=== PATIENT | male | born 1965 | race African-American/Black ===

== ENCOUNTER → 2022-05-03 | Outpatient (CLI) | payer OTHER ==
--- NOTE | 2022-05-03 16:56 | XR ---
EXAMINATION TYPE: XR shoulder complete LT DATE OF EXAM: 05/03/2022 4:47 PM INDICATION: Patient age:Male; 56 years old; Reason for study: M25.512 left shoulder pain; COMPARISON: None TECHNIQUE: The left shoulder was examined in AP, internally rotated and scapular Y projections. . FINDINGS: No evidence of acute osseous pathology, joint dislocation, or soft tissue swelling. The remaining por tions of the visualized chest are unremarkable. Mild degeneration changes of the acromioclavicular joint with bulging of the acromion which may be im pinging upon the superior rotator cuff. IMPRESSION: 1. No acute osseous pathology. 2. Degeneration changes of the left shoulder with a locking of the acromion which could be impacting upon the superior rotator cuff.
== END | disposition home or self-care (01) ==
LOC: RADXRMAIN 15:49
PROVIDERS: ATTEND Emergency Medicine
DX: M19.012 Primary osteoarthritis, left shoulder (principal)

== ENCOUNTER → 2022-06-08 | Outpatient (CLI) | payer OTHER ==
--- NOTE | 2022-06-08 17:13 | MR ---
EXAMINATION TYPE: MR shoulder LT wo con DATE OF EXAM: 06/08/2022 COMPARISON: Left shoulder x-ray May 03, 2022 HISTORY: Lt shoulder pain for 2 months after injury TECHNIQUE: Multiplanar, multisequence imaging of the left shoulder is performed without contrast. FINDINGS: Rotator Cuff: Full-thickness retracted tear of the supraspinatus tendon with large cleft measuring 9 mm transversely coronal image 11 x 11 mm AP diameter sagittal image 8. Infraspinatus tendon grossly i ntact. Subscapularis tendon intact surrounding fluid. Rotator cuff muscle bulk preserved. Acromioclavicular Joint: Moderate to severe narrowing with moderate capsular hypertrophy. Underlying fat plane is maintained. Glenohumeral Joint: Moderate narrowing without significant spurring. Small to moderate size joint eff usion Labrum: The labrum appears grossly intact given limitation of non-arthrogram study. Biceps Tendon: The long head of biceps is in normal location within bicipital groove. Bone marrow signal: No focal abnormal marrow signal is appreciated. Other: No additional significant abnormality is appreciated. IMPRESSION: Significant focal retracted tear of the supraspinatus tendon as detailed above.
== END | disposition home or self-care (01) ==
LOC: RADMRIMAIN 13:15
PROVIDERS: ATTEND Emergency Medicine
DX: M75.112 Incomplete rotator cuff tear or rupture of left shoulder, not specified as traumatic (principal)

== ENCOUNTER → 2022-08-22 | Outpatient (CLI) | payer BC, OTHER ==
[2022-08-22 23:50] LABS: Basophils # (A) 0.05 X 10*3/uL (0.00-0.10); Basophils % (A) 0.8 %; Eosinophils % (A) 3.2 %; HCT 41.3 % (39.6-50.0); HGB 13.7 g/dL (13.0-17.0); Immature Grans, Automated 0.5 %; Lymphocytes # (A) 2.59 X 10*3/uL (0.90-5.00); Lymphocytes % (A) 41.9 %; MCH 31.7 pg (27.0-32.0); MCHC 33.2 g/dL (32.0-37.0); MCV 95.6 fL (80.0-97.0); Mean Platelet Volume 11.1 fL (9.5-12.2); Monocytes # (A) 0.53 X 10*3/uL (0.20-1.00); Monocytes % (A) 8.6 %; NRBC Per 100 WBC 0 /100 WBCS (0.0-0.0); Neutrophils # (A) 2.78 X 10*3/uL (1.80-7.70); Platelet Count 179 X 10*3/uL (140-440); RBC 4.32 X 10*6/uL (4.40-5.60); RDW 13.3 % (11.5-14.5); WBC 6.18 X 10*3/uL (4.50-10.00)
[2022-08-23 00:31] LABS: African American GFR (CKD) 95.1 (60.0-200.0); Anion Gap 10.2 mmol/L (10.00-18.00); BUN/Creat Ratio 9.3 Ratio (12.00-20.00); Blood Urea Nitrogen 9.3 mg/dL (9.0-27.0); Calcium 9.1 mg/dL (8.7-10.3); Carbon Dioxide 28.8 mmol/L (20.0-27.5); Potassium 4.4 mmol/L (3.5-5.5)
== END | disposition home or self-care (01) ==
LOC: LABWHC1 15:45
PROVIDERS: ATTEND Orthopaedic Surgery
DX: Z01.812 Encounter for preprocedural laboratory examination (principal); M75.42 Impingement syndrome of left shoulder
CPT/HCPCS: 36415; 80048; 85025; 93005

== ENCOUNTER → 2022-09-08 | Outpatient (CLI) | payer OTHER ==
--- NOTE | 2022-09-08 13:56 | XR ---
EXAMINATION TYPE: XR wrist complete RT DATE OF EXAM: 09/08/2022 COMPARISON: None HISTORY: Wrist pain radial head ganglion cyst TECHNIQUE: 4 view right wrist FINDINGS: There is prominent soft tissue over the carpal region of the dorsal wrist. There is mild prominence of the scapholunate space of 0.3 cm. There is clinical concern for scapholun ate disassociation, MRI could be performed. MRI would be able to further evaluate the suspected dorsa l ganglion cyst. No acute fractures are evident. Follow up exams can be performed 7-10 days from acute trauma for cont inued. If there is pain at the anatomic snuffbox, nuclear medicine bone scan could be performed for a dditional evaluation. IMPRESSION: 1. Soft tissue swelling dorsal carpal region. MRI could further evaluate these suspected ganglion cy st. 2. There may be some mild prominence of the scapholunate space. MRI could further evaluate for disass ociation.
== END | disposition home or self-care (01) ==
LOC: RADXRMAIN 13:22
PROVIDERS: ATTEND Emergency Medicine
DX: M79.89 Other specified soft tissue disorders (principal)

== ENCOUNTER → 2022-09-23 | Outpatient (CLI) | payer BC ==
[2022-09-23 19:14] LABS: Basophils # (A) 0.04 X 10*3/uL (0.00-0.10); Basophils % (A) 0.5 %; Eosinophils # (A) 0.18 X 10*3/uL (0.04-0.35); Eosinophils % (A) 2.4 %; HCT 39.4 % (39.6-50.0); HGB 13.3 g/dL (13.0-17.0); Immature Grans, Automated 0.4 %; Lymphocytes # (A) 2.24 X 10*3/uL (0.90-5.00); Lymphocytes % (A) 30.2 %; MCH 31.1 pg (27.0-32.0); MCHC 33.8 g/dL (32.0-37.0); MCV 92.3 fL (80.0-97.0); Mean Platelet Volume 10.4 fL (9.5-12.2); Monocytes # (A) 0.69 X 10*3/uL (0.20-1.00); Monocytes % (A) 9.3 %; NRBC Per 100 WBC 0 /100 WBCS (0.0-0.0); Neutrophils # (A) 4.24 X 10*3/uL (1.80-7.70); Neutrophils % (A) 57.2 %; Platelet Count 170 X 10*3/uL (140-440); RBC 4.27 X 10*6/uL (4.40-5.60); RDW 12.9 % (11.5-14.5); WBC 7.42 X 10*3/uL (4.50-10.00)
[2022-09-23 19:45] LABS: African American GFR (CKD) 95.1 (60.0-200.0); Anion Gap 10.9 mmol/L (10.00-18.00); BUN/Creat Ratio 8.3 Ratio (12.00-20.00); Blood Urea Nitrogen 8.3 mg/dL (9.0-27.0); Calcium 9.3 mg/dL (8.7-10.3); Carbon Dioxide 28.1 mmol/L (20.0-27.5); Potassium 4.3 mmol/L (3.5-5.5)
== END | disposition home or self-care (01) ==
LOC: LABPAT 11:21
PROVIDERS: ATTEND Orthopaedic Surgery
DX: Z01.812 Encounter for preprocedural laboratory examination (principal); M75.42 Impingement syndrome of left shoulder
CPT/HCPCS: 80048; 85025

== ENCOUNTER 2022-09-30 05:34 | Day surgery (SDC) | payer BC, OTHER ==
[2022-09-27 13:03] VITALS: BMI 31.7
--- NOTE | 2022-09-29 11:58 | P.HPOR ---
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 He was lifting a heavy trash can and felt a pop in his left shoulder. He has pain and weakness ever since. He notes difficulty with overhead activity and in addition to significant night symptoms. He's been on work restrictions since his injury. He denies previous problems with the left shoulder. Review of Systems As per HPI Past Medical History Past Medical History: Hypertension History of Any Multi-Drug Resistant Organisms: None Reported Past Surgical History: Orthopedic Surgery Additional Past Surgical History / Comment(s): Left wrist surgery. Past Anesthesia/Blood Transfusion Reactions: No Reported Reaction Past Psychological History: No Psychological Hx Reported Smoking Status: Former smoker Past Alcohol Use History: Occasional Additional Past Alcohol Use History / Comment(s): Quit smoking 2 1/2 yrs ago. Past Drug Use History: None Reported - Past Family History Brother(s) Family Medical History: Cancer Medications and Allergies Home Medications Medication Instructions Recorded Confirmed Type Ibuprofen 600 mg PO TID 09/27/22 09/27/22 History Naproxen [Naprosyn] 500 mg PO BID PRN 09/27/22 09/27/22 History lisinopriL [Zestril] 10 mg PO QAM 09/27/22 09/27/22 History Allergies Allergy/AdvReac Type Severity Reaction Status Date / Time No Known Allergies Allergy Verified 09/27/22 12:50 Physical Examination - Shoulder left Appearance: effusion Effusion grade: trace Tenderness with palpation: anterior Pain: with forward flexion ROM: forward flexion: 100 degrees (100 actively, 150 passively) ROM: external rotation: 40 degrees Strength: abduction: 4/5 Strength: forward flexion: 4/5 Tests: internal impingement tests: positive Results The patient is a well-developed well-nourished male approximately 6 foot tall, 236 pounds of endomorphic habitus. HEENT exam is nonfocal, neck is supple. He's tender about the left shoulder anterior subacromial space. He has moderate subacromial crepitus. Impingement test, and NEER test are positive. His distal neurovascular exam appears intact in the left upper extremity. - Diagnostic results Shoulder MRI: image reviewed (Left shoulder MRI is reviewed and shows a retracted full thickness supraspinatus tear) Assessment and Plan Assessment: Left acute rotator cuff tear Plan: I talked to the patient regarding his condition along with treatment options. At this point he is significantly symptomatic after this acute injury. After a thorough discussion he opted to proceed with surgery. We'll plan to proceed with arthroscopic evaluation with probable left shoulder subacromial decompression, and rotator cuff repair. We will likely perform that as an outpatient procedure. Risks and benefits were discussed at length in layman's terms.
[2022-09-30] MEDS ORDERED: HYDROmorphone 0.5 MG/0.5 ML SYRINGE IVP PRN (05:45)
[2022-09-30] MEDS ORDERED: DEXAMETHASONE SOD PHOSPHATE 4 MG/ML 1 ML VIAL IV ONE (05:45)
[2022-09-30] MEDS ORDERED: LIDOCAINE 1% (10MG/ML) FOR IV START INTRADERMA PRN (05:45)
[2022-09-30] MEDS ORDERED: LACTATED RINGERS 1,000 ML IV SCH (05:45)
[2022-09-30] MEDS ORDERED: ONDANSETRON 4 MG/2 ML VIAL IVP ONE (05:45)
[2022-09-30] MEDS ORDERED: MIDAZOLAM 2 MG/2 ML VIAL IV PRN (05:45)
[2022-09-30 06:10] VITALS: RESP 16
[2022-09-30] MEDS ORDERED: DEXAMETHASONE SOD PHOSPHATE 4 MG/ML 1 ML VIAL ONE (07:10)
[2022-09-30] MEDS ORDERED: NEOSTIGMINE 1 MG/ML 10 ML VIAL ONE (07:10)
[2022-09-30] MEDS ORDERED: hydrALAZINE HCL 20 MG/ML 1 ML VIAL ONE (07:10)
[2022-09-30] MEDS ORDERED: SUCCINYLCHOLINE CHLORIDE 200 MG/10 ML VIAL IV ONE (07:10)
[2022-09-30] MEDS ORDERED: fentaNYL (PF) 50 MCG/ML 2 ML AMP ONE (07:10)
[2022-09-30] MEDS ORDERED: ROPIVACAINE 5 MG/ML 30 ML VIAL ONE (07:10)
[2022-09-30] MEDS ORDERED: PROPOFOL 10 MG/ML 20 ML VIAL IV ONE (07:10)
[2022-09-30] MEDS ORDERED: HYDROmorphone (PF) 1 MG/ML ONE (07:10)
[2022-09-30] MEDS ORDERED: GLYCOPYRROLATE 0.2 MG/ML 2 ML VIAL ONE (07:10)
[2022-09-30] MEDS ORDERED: LIDOCAINE 2% INJ 20 MG/ML (2 ML VIAL) ONE (07:10)
[2022-09-30] MEDS ORDERED: ROCURONIUM 10 MG/ML (5 ML VIAL) IV ONE (07:10)
[2022-09-30] MEDS ORDERED: EPINEPHrine (PF) 1 ML in SODIUM CHLORIDE 0.9% IRRIGATIO 3,000 ML IRRIGATION ONE ×8 (07:18)
--- NOTE | 2022-09-30 09:08 | P.OP ---
Date of Procedure: 09/30/22 Preoperative Diagnosis: Left rotator cuff tear Postoperative Diagnosis: 4 cm left rotator cuff tear, type I superior labral tear Procedure(s) Performed: Left shoulder arthroscopic subacromial decompression/superior labral debridement/rotator cuff repair Implants: Arthrex 4.75 mm swivel lock anchor 4 Anesthesia: ANNY, [facility] Surgeon: Ezekiel Mendieta [employer] Manager #1: Saul Scott Estimated Blood Loss (ml): 10 Pathology: none sent Condition: stable Disposition: PACU Indications for Procedure: The patient's a 57-year-old male presents after an acute injury to his left shoulder work recently with persistent pain and weakness. A discussion of the risks and benefits of operative intervention was made with patient. He opted to proceed with surgery. Operative risks to include infection, neurovascular injury, development of blood clots, possible tendon rerupture, possible postoperative stiffness and possible need for subsequent procedures was discussed. Informed consent was obtained. Operative Findings: As below Description of Procedure: The patient was brought to the operating room, and after induction of general anesthesia was placed in a beachchair position. A preoperative interscalene block was placed for postoperative analgesia. I examined the left shoulder. There was no gross block to passive motion or gross glenohumeral instability. The left upper extremity was prepped and draped in normal fashion. The bony outlines the acromion, distal clavicle, and coracoid process were outlined with a skin marker. The glenohumeral joint was inflated with 50 mL of saline utilizing a spinal needle from posterior approach. A posterior portal was made through a 5 mm skin incision 1 cm medial and inferior to the posterior lateral border time. A blunt trocar was used to easily into the joint. Diagnostic arthroscopy was performed. An anterior portal was made just lateral to the coracoid process entering the joint above the subscapularis tendon. The subsca pularis tendon appeared to be intact. Anterior labrum was intact. The inferior recess was inspected. The posterior labrum was intact. A type I superior labral tear was noted. This was debrided back to a stable base with a motorized shaver. The anchor otherwise appeared to be stable. The biceps appeared to be intact. On inspection the rotator cuff, a full thickness rotator cuff tear involving the supraspinatus and a portion of the supraspinatus was noted. There was some retraction. The arthroscope was placed into the subacromial space. A lateral portal was made 2 centimeters inferior to the anterior lateral border of the acromion. The rotator cuff was then mobilized with a traction suture. This was then easily brought back to the greater tuberosity. The soft tissue on the undersurface of the acromion was debrided with a motorized shaver and electrocautery clearly defining the anterior medial and lateral borders as well as the distal clavicle. An anterior inferior acromioplasty was performed with a motorized sun starting anterolateral, then extending this posteriorly, then extending this medially. I converted to a flat acromion and this was verified in the posterior and lateral viewing portals. The greater tuberosity was lightly decorticating with a shaver down to a bleeding bony surface. An accessory superior lateral portal was made just off the lateral edge of the acromion for anchor placement. 2 anchors were then placed just off the articular surface with the appropriate starting awl. 4.75 mm anchors preloaded with #2 fiber tape were placed. Good purchase was obtained. These fiber tapes were then passed the rotator cuff with a scorpion suture passer. A lateral row was created crisscrossing these tapes. 4.5 mm swivel lock anchors x2 were placed laterally. Good purchase was obtained. Final arthroscopic view showed adequate compression at the footprint. The arthroscope was then removed. The portals were closed with simple 3-0 nylon sutures. A sterile dressing was applied in addition to an abductor brace. The patient was then awoken from general anesthesia and transferred to recovery room in good condition. Blood loss was estimated at 10 mL. No complications were incurred. Sponge and needle counts were correct in the case. Saul VILLALPANDO assisted and the major components of the case to include arm positioning, anchor placement, and rotator cuff repair.
[2022-09-30 09:25] VITALS: TEMP 97.5
--- NOTE | 2022-09-30 09:58 | P.ANPRN ---
Procedure Note - Anesthesia - Nerve Block Performed Left Interscalene Time Out Performed: Yes (06:49) Date of Procedure: 09/30/22 Procedure Start Time: :49 Procedure Stop Time: 06:56 Location of Patient: PreOp Indication: Acute Post-Operative Pain, Requested by Surgeon (Dr Mendieta) Sedation Type: Sedate with meaningful contact maintained Preparation: Sterile Prep Position: Supine Catheter: None Needle Types: Pajunk Needle Gauge: Other (see comment) (22g) Ultrasound used to visualize needle placement: Yes Ultrasound used to observe medication spread: Yes Injectate: 0.5% Ropivacaine (see comment for volume) (20cc + Decadron 4mg) Blood Aspirated: No Pain Paresthesia on Injection Noted: No Resistance on Injection: Normal Image Stored and Saved: Yes Events: Uneventful and Well Tolerated
[2022-09-30 11:02] VITALS: BP 149/84; PULSE 86
== END 2022-09-30 11:08 | disposition home or self-care (01) ==
LOC: OR 05:34
PROVIDERS: ATTEND Orthopaedic Surgery
DX: M75.102 Unspecified rotator cuff tear or rupture of left shoulder, not specified as traumatic (principal); S43.432A Superior glenoid labrum lesion of left shoulder, initial encounter; M75.42 Impingement syndrome of left shoulder; G89.18 Other acute postprocedural pain; I10 Essential (primary) hypertension; Z87.891 Personal history of nicotine dependence; Z79.899 Other long term (current) drug therapy; Z79.1 Long term (current) use of non-steroidal anti-inflammatories (NSAID); X58.XXXA Exposure to other specified factors, initial encounter
CPT/HCPCS: 29827; 29826; 64415; 76942; C1713 ×2; C1894; J2250; J0330; J0360; J1100; J2710; J0690; J2405; J0171; J3010; J1170; J2795; J2704; J2001

== ENCOUNTER → 2023-01-16 | Outpatient (CLI) | payer OTHER ==
--- NOTE | 2023-01-17 22:07 | MR ---
EXAMINATION TYPE: MR wrist RT wo con DATE OF EXAM: 01/16/2023 COMPARISON: Radiograph 09/08/2022 HISTORY: 57-year-old male Right wrist pain. M25.731, right wrist osteophyte. TECHNIQUE: Multiplanar, multisequence images of the right wrist were obtained without IV contrast. FINDINGS: Focal erosion and marrow edema ulnar head. Small effusion in the distal radial ulnar joint. Possible partial tear involving the styloid limb of the TFC. There are scattered subcortical cysts throughout both proximal and distal carpal rows. While there is increased signal along the scapholunate ligament, intact dorsal fibers are visualized. There is focal moderate tenosynovitis of the second dorsal extensor compartment with rice bodies. The re is severe tenosynovitis along the third dorsal extensor compartment involving the abductor halluci s longus. Marked tendon thickening and inhomogeneous signal at its crossing over the second compartme nt. Numerous large joint bodies are present. There is distention of the tendon sheath greater than 3 cm wide and 1.5 cm thick. There is some joint space narrowing along the radial lunate articulation. Suspect marginal erosion at the level of the radial dorsal aspect of the fifth metacarpal head. No suspicious bone marrow replacement or evidence for acute or healing fracture. IMPRESSION: 1. The presence of a focal erosion at the ulnar head, also suspected erosion along the radial aspect of the fifth metacarpal head, and subcortical cysts within the carpal rows along with underlying join t effusion raises concern for inflammatory or crystalline arthropathies including the possibility of RA and CPPD. Further clinical correlation recommended. 2. There is severe tenosynovitis along the third dorsal compartment with the tendon sheath distended up to 3 cm wide and 1.5 cm thick with multiple loose bodies/rice bodies. Consider fluid aspiration an d fluid analysis. Thickening and inhomogeneity of the APL as it crosses over the second extensor comp artment could reflect a concurrent crossover syndrome. 3. Moderate tenosynovitis of the second dorsal extensor compartment with additional rice bodies here. 4. Sprain of the scapholunate ligament without earlene tear. 5. Possible partial tear of the styloid limb of the TFC.
== END | disposition home or self-care (01) ==
LOC: RADMRIMAIN 11:07
PROVIDERS: ATTEND Orthopaedic Surgery
DX: S63.391A Traumatic rupture of other ligament of right wrist, initial encounter (principal); C92.40 Acute promyelocytic leukemia, not having achieved remission; M25.731 Osteophyte, right wrist; M65.0 Abscess of tendon sheath; M25.431 Effusion, right wrist